=== PATIENT | male | born 1970 | race Caucasian/White ===

== ENCOUNTER 2017-01-15 10:43 | Day surgery (SDC) | payer BC ==
[~2017-01-15 10:43] MED LIST: Lactated Ringers 1,000 ML PRIMARY IV ONE; MIDAZOLAM 5 MG/1 ML ONE; fentaNYL Inj 100 MCG/2 ML VIAL ONE
[2017-01-15] MEDS: LIDOCAINE W/ SODIUM BICARB 0.5 ML SYR ONE (11:15)
--- NOTE | 2017-01-15 12:05 | GEN.OPNOTE ---
Colonoscopy Procedure Note Surgery Date: 01/15/17 Preoperative Diagnosis: Change in bowel habits. Bright red blood per rectum. Postoperative Diagnosis: Same. Mild internal hemorrhoids. Procedure: #1 anoscopy. #2 complete colonoscopy Surgeon: Rico Padilla MD Anesthesia Provider: Ian Bob CRNA Anesthesia Type: MAC Indications: See preoperative diagnosis. Patient also has biliary dyskinesia and is scheduled for laparoscopic cholecystectomy. Findings: Prep : [Excellent] Cecum : [Normal] Ascending : [Normal] Transverse : [Normal] Sigmoid : [Normal ] Rectum : [normal] Digital Rectal Exam : [Mild hemorrhoidal tissue. Prostate of normal size and consistency.] Anoscopy:[Mild internal hemorrhoids. Nothing amenable to local treatment.] A lubricated flexible colonoscope was inserted and passed to the blind end of the cecum. The appendiceal orifice and ileocecal valve were clearly seen. Air was aspirated as the scope was withdrawn. The entire colonoscopy was normal without polyp, tumor, neoplastic mass, infectious or inflammatory process. There was mild internal hemorrhoidal tissue. The scope was withdrawn completing the procedure. Patient tolerated the procedure well without complication. He was taken to outpatient surgery in stable condition. Follow-up will be with my office on an as-needed basis. We will proceed with laparoscopic cholecystectomy with intraoperative cholangiogram as scheduled.
[2017-01-15 12:47] VITALS: TEMP 97.2
[2017-01-15 12:48] VITALS: RESP 16
== END 2017-01-15 12:43 | disposition home or self-care (01) ==
LOC: SDSC 10:43
PROVIDERS: ATTEND Surgery
DX: K82.8 Other specified diseases of gallbladder (principal); R19.4 Change in bowel habit; K62.5 Hemorrhage of anus and rectum
CPT/HCPCS: 45378; J2704; J3010; J2250; J7120

== ENCOUNTER 2017-01-29 06:56 | Day surgery (SDC) | payer BC ==
[~2017-01-29 06:56] MED LIST changes: +ATROPINE SULFATE 0.4 MG/1 ML VIAL IVP PRN; +BUPIVACAINE 0.25% W/ EPI - 10 ML VIAL ONE; +Bacteriostatic NaCl Inj 30ml Vial ONE; +HYDROmorphone 2 MG/1 ML IVP PRN; +IPRATROPIUM/ALBUTEROL SULFATE 3 ML NEB NEB ONE; +Iothalamate Meglumine 30 ML VIAL IV ONE; +LIDOCAINE W/ SODIUM BICARB 0.5 ML SYR ONE; +Lactated Ringers 1,000 ML PRIMARY IV SCH; -MIDAZOLAM 5 MG/1 ML ONE; +NORMAL SALINE 10 ML SYRINGE FLUSH IVP PRN; +ONDANSETRON 4 MG/2 ML VIAL IVP PRN; +Ondansetron ODT Tab 8 MG TAB PO PRN; +Sodium Chloride 0.9% vial 10 ML ONE; +ceFAZolin Inj 2gm (Premix) 50 ML IV ONE; +fentaNYL Inj 100 MCG/2 ML VIAL IVP PRN; -fentaNYL Inj 100 MCG/2 ML VIAL ONE
[2017-01-29] MEDS ORDERED: fentaNYL Inj 250 MCG/5 ML VIAL ONE (07:23)
[2017-01-29] MEDS ORDERED: MIDAZOLAM 5 MG/1 ML ONE (07:23)
[2017-01-29] MEDS ORDERED: ROCURONIUM 10 MG/1 ML - 5 ML VIAL IVP ONE (07:24)
[2017-01-29] MEDS ORDERED: DEXAMETHASONE PF 10 MG/1 ML VIAL ONE (07:26)
[2017-01-29] MEDS ORDERED: LIDOCAINE MPF 2% - 5 ML (20 MG/1 ML) ONE (07:26)
[2017-01-29] MEDS ORDERED: Sodium Chloride 0.9% vial 10 ML ONE (07:26)
[2017-01-29] MEDS ORDERED: IPRATROPIUM/ALBUTEROL SULFATE 3 ML NEB NEB ONE (07:32)
[2017-01-29] MEDS ORDERED: Lactated Ringers 1,000 ML PRIMARY IV ONE (08:24)
[2017-01-29] MEDS ORDERED: ONDANSETRON 4 MG/2 ML VIAL ONE (08:47)
[2017-01-29] MEDS ORDERED: HYDROmorphone 2 MG/1 ML ONE (08:49)
[2017-01-29] MEDS ORDERED: NEOSTIGMINE 1 MG/1 ML - 10 ML ONE (08:55)
[2017-01-29] MEDS ORDERED: GLYCOPYRROLATE 0.2 MG/1 ML VIAL ONE (08:55)
[2017-01-29] MEDS ORDERED: KETOROLAC 30 MG/1 ML VIAL ONE (08:57)
[2017-01-29] MEDS ORDERED: ONDANSETRON 4 MG/2 ML VIAL IVP PRN (09:22)
[2017-01-29] MEDS ORDERED: NORMAL SALINE 10 ML SYRINGE FLUSH IVP PRN (09:22)
[2017-01-29] MEDS ORDERED: HYDROcodone-APAP 5 MG -325 MG TABLET PO PRN (09:22)
[2017-01-29] MEDS ORDERED: MORPHINE SULFATE 2 MG/1 ML IVP PRN (09:22)
--- NOTE | 2017-01-29 09:22 | GEN.OPNOTE ---
Operative Note Surgery Date: 01/29/17 Preoperative Diagnosis: Biliary dyskinesia. Postoperative Diagnosis: Biliary dyskinesia. Procedure: Laparoscopic cholecystectomy with intraoperative cholangiogram. Surgeon: Rico Padilla MD Manager Wound Care: Paul Villanueva MD Anesthesia Provider: Coty Corey CRNA Anesthesia Type: General Estimated Blood Loss (mL): 5 Fluids: 1800 mL of crystalloid. 2 g of IV Ancef at the start of the procedure. 15 mg of IV Toradol at the end of the procedure. Pathology: Specimen to pathology. Indications: Patient with right upper quadrant pain and bloating and decreased appetite. Ultrasound showed no stones. HIDA scan showed ejection fraction of 14% consistent with biliary dyskinesia. Findings: Gallbladder appeared normal. No other intra-abdominal pathology. Intraoperative cholangiogram was normal. The duct was normal in size. There is a normal distal taper with free flow into the duodenum. There was a normal branching pattern. There were no filling defects. Complications: None. Operative Summary: The patient was taken to the operating room and placed on the operating table in the supine position. Following induction of general anesthetic the abdomen was prepped and draped in a sterile fashion. A surgical timeout was done. The infraumbilical region was infiltrated with 1/4% Marcaine with epinephrine. An incision was made. The abdominal wall was elevated. A Veres needle was placed without apparent injury and a pneumoperitoneum was induced. The veres needle was withdrawn. A 10 mm trocar was placed without apparent injury and a laparoscope was inserted. Under direct visualization and following Marcaine injection a 10 mm trocar was placed in the epigastrium and 2x5 mm trochars were placed along the costal margin. The gallbladder was grasped and elevated. Blunt dissection was used to free the cystic duct. A clip was placed along the neck of the gallbladder. A hole was made in the side wall of the cystic duct. A Aptrick cholangiocatheter was inserted. Intraoperative cholangiogram was taken and was normal as previously dictated. The [place] catheter was withdrawn. 2 clips were placed on the distal cystic duct and the duct was divided. The cystic artery was isolated. 2 clips were placed proximally and one distally and the artery was divided. The gallbladder was taken from the hepatic bed using electrocautery. Hemostasis was assured. Appropriate irrigation and suctioning were performed. Final check for hemostasis was made. 5 mL of Marcaine was placed in the gallbladder fossa and 5 over the dome of the liver. The gallbladder was grasped with a large grasper and brought up to the epigastric trocar site. The gallbladder was brought out through the trocar without difficulty. The fascial defect at the umbilicus was closed with a simple 0 Vicryl. A final check for hemostasis was made. The CO2 was burped from the abdominal cavity. The trochars were removed under direct visualization. The epigastric trocar site was closed with a simple 0 Vicryl as well. The skin wounds were closed with inverted interrupted or running subcuticular 4-0 Monocryl followed by Mastisol Steri-Strips and an appropriate dressing. Patient tolerated the procedure well without complication. Patient was taken to the recovery room in stable condition. All counts were correct.
[2017-01-29] MEDS ORDERED: Lactated Ringers 1,000 ML PRIMARY IV SCH (09:30)
[2017-01-29] MEDS ORDERED: Nalbuphine Inj 20 MG/ML Ampule ONE (09:48)
[2017-01-29] MEDS ORDERED: Nalbuphine Inj 20 MG/ML Ampule IVP PRN (09:57)
--- NOTE | 2017-01-29 10:15 | DI ---
OPERATIVE CHOLANGIOGRAM, 01/29/2017 8:00 AM : Clinical History: Biliary dyskinesia. 5 films are submitted. Contrast is present on all films with reflux into the duodenum. There are 2 im ages with reflux into the pancreatic duct. The pancreatic duct appears normal. There is no retained s tone in the common hepatic or common bile ducts. The visualized portions of the intrahepatic biliary tree are normal. Reading: Normal operative cholangiogram.
[2017-01-29 11:37] VITALS: RESP 17
[2017-01-29 11:43] VITALS: TEMP 97.6
== END 2017-01-29 11:25 | disposition home or self-care (01) ==
LOC: SDSC 06:56
PROVIDERS: ATTEND Surgery
DX: K82.8 Other specified diseases of gallbladder (principal); R19.4 Change in bowel habit; K62.5 Hemorrhage of anus and rectum
CPT/HCPCS: 47563; 74300; 94640; A4216; J0690; J1885; J2300; J2704; J3010; J7620; Q9961; J1100; J1170; J2001; J2250; J2405; J2710; J7120

== ENCOUNTER 2017-05-22 19:57 | Inpatient (IN) ==
[~2017-05-22 19:57] MED LIST changes: -ATROPINE SULFATE 0.4 MG/1 ML VIAL IVP PRN; -BUPIVACAINE 0.25% W/ EPI - 10 ML VIAL ONE; -Bacteriostatic NaCl Inj 30ml Vial ONE; -HYDROmorphone 2 MG/1 ML IVP PRN; -IPRATROPIUM/ALBUTEROL SULFATE 3 ML NEB NEB ONE; -Iothalamate Meglumine 30 ML VIAL IV ONE; -LIDOCAINE W/ SODIUM BICARB 0.5 ML SYR ONE; -Lactated Ringers 1,000 ML PRIMARY IV SCH; -NORMAL SALINE 10 ML SYRINGE FLUSH IVP PRN; -ONDANSETRON 4 MG/2 ML VIAL IVP PRN; -Ondansetron ODT Tab 8 MG TAB PO PRN; +Sodium Chloride 0.9% 100 ML IV ONE; -Sodium Chloride 0.9% vial 10 ML ONE; -ceFAZolin Inj 2gm (Premix) 50 ML IV ONE; -fentaNYL Inj 100 MCG/2 ML VIAL IVP PRN
[2017-05-22] MEDS ORDERED: CefOXitin Inj 2 GM in Sodium Chloride 0.9% 100 ML IV ONE (20:21)
[2017-05-22] MEDS ORDERED: Lactated Ringers 1,000 ML PRIMARY IV SCH (20:30)
--- NOTE | 2017-05-22 20:35 | PDOC ---
HPI - History of Present Illness Date and Time of Service: 05/22/2017 at 1630 Chief Complaint: Acute appendicitis History of Present Illness: This is a 46-year-old male is developed acute abdominal pain. He states his the right lower quadrant. He states it's more severe pain and he said. He's never had pain like this before. Patient was seen in emergency department and had 11,000 white count. This that he had a CT scan which showed he had a acute appendicitis with a calcified stool within the appendix. He denies any fever or chills. Is no diarrhea or constipation. There is no nausea vomiting. No hematochezia hematemesis or melena Past Medical History Medical History: History anxiety and depression. History of asthma Surgical History: Laparoscopic cholecystectomy In the Past 12 Months, Have Used or Abuse Any of the Following Substance: None Medication / Allergies Home Medications: Home Medications Medication Instructions Recorded Confirmed Type Budesonide/Formoterol Fumarate 2 puff INH BID inh 01/07/17 05/22/17 History [Symbicort] Buspirone HCl 0.5 tab PO QD tab 01/07/17 05/22/17 History Cetirizine HCl [All Day Allergy] 10 mg PO PRN PRN cap 01/07/17 05/22/17 History Montelukast Sodium 1 tab PO DAILY tab 01/07/17 05/22/17 History Pantoprazole Sodium 1 tab PO DAILY tab 01/07/17 05/22/17 History Sertraline HCl 1 tab PO DAILY tab 01/07/17 05/22/17 History Albuterol Sulfate [Proair 90 mcg INH DAILY 01/15/17 05/22/17 History Respiclick] Citalopram Hydrobromide [Celexa] 10 mg PO DAILY 05/22/17 05/22/17 History Divalproex Sodium 500 mg PO DAILY 05/22/17 05/22/17 History Allergies/Adverse Reactions: Allergies 3 Allergy/AdvReac Type Severity Reaction Status Date / Time No Known Allergies Allergy Verified 05/22/17 20:12 Review of Systems - Constitutional Constitutional: REPORTS: Negative System Review - Integumentary Integumentary: REPORTS: Negative System Review - Respiratory Respiratory: REPORTS: Wheezing - Cardiovascular Cardiovascular: REPORTS: Negative System Review - Gastrointestinal Gastrointestinal / Abdominal: REPORTS: Abdominal Pain, Heartburn - Genitourinary Genitourinary: REPORTS: Negative System Review - Musculoskeletal Musculoskeletal: REPORTS: Negative System Review - Neurological Neurologic: REPORTS: Negative System Review - Psychiatric Psychiatric: REPORTS: Anxiety, Depressed Exam - General General Appearance: No Acute Distress, Cooperative - Head Head Exam: Normal Inspection - Eye Eye Exam: POSITIVE: PERRL, EOMI - Neck Neck Exam: Full ROM - Respiratory Respiratory Exam: POSITIVE: Clear to Auscultation - Bilaterally, Breathing Non Labored - Cardiovascular Cardiovascular Exam: POSITIVE: RRR, No Murmur, No Clicks - GI/Abdominal GI/Abdominal Exam: POSITIVE: Soft, No Hepatomegaly, No Splenomegaly Additional GI/Abdominal Exam Details: Patient has right lower quadrant abdominal pain. There is no rebound or rigidity at this time - Rectal Rectal Exam: POSITIVE: Deferred - Extremities Extremities Exam: POSITIVE: Full ROM, Normal Capillary Refill, No Clubbing Present - Neurological Neurological Exam: POSITIVE: Alert, Oriented x 3 Assessment and Plan - Patient Problems (1) Acute appendicitis with localized peritonitis Current Visit: Yes Status: Acute Code(s): K35.3 - Acute appendicitis with localized peritonitis - Assessment / Plan Additional Assessment/Plan Details: At this point, I think the patient does need an appendectomy. Because of the fecalith, seen within the appendix he is not a candidate for antibiotic therapy. Risks and benefits of surgery were explained to the patient. He understands the risk of surgery and has signed informed consent. He received 2 g of cefoxitin Reduce the risk of a postoperative infection.
[2017-05-22] MEDS ORDERED: fentaNYL Inj 100 MCG/2 ML VIAL IVP PRN (20:38)
[2017-05-22] MEDS ORDERED: HYDROmorphone 2 MG/1 ML IVP PRN (20:38)
[2017-05-22] MEDS ORDERED: NORMAL SALINE 10 ML SYRINGE FLUSH IVP PRN ×3 (20:38→22:15)
[2017-05-22] MEDS ORDERED: ONDANSETRON 4 MG/2 ML VIAL IVP PRN ×3 (20:38→22:15)
[2017-05-22] MEDS ORDERED: BUPivacaine Liposome/PF (Exparel) Inj 20ml vial INFIL ONE (21:14)
[2017-05-22] MEDS ORDERED: NALOXONE 0.4 MG/1 ML VIAL IVP PRN ×2 (21:27→22:15)
[2017-05-22] MEDS ORDERED: HYDROcodone-APAP 7.5 MG-325 MG TABLET PO PRN (21:27)
[2017-05-22] MEDS ORDERED: MORPHINE SULFATE 2 MG/1 ML IVP PRN ×2 (21:27→22:15)
[2017-05-22] MEDS ORDERED: KETOROLAC 15 MG/1 ML VIAL IVP PRN ×2 (21:27→22:15)
--- NOTE | 2017-05-22 21:28 | GEN.OPNOTE ---
Operative Note Surgery Date: 05/22/17 Preoperative Diagnosis: Acute appendicitis with localized peritonitis Postoperative Diagnosis: Same as preop Procedure: Appendectomy Surgeon: Pilo Teague MD Anesthesia Provider: Ian Bob CRNA Anesthesia Type: General Estimated Blood Loss (mL): 2 Fluids: Please see anesthesia notes in EMR Pathology: Appendix was sent Indications: Acute appendicitis Findings: Patient had tip of the appendix that was inflamed was not perforated. Operative Summary: Patient is brought in operative room. Placed supine position. Given general trach anesthesia. Patient is prepped draped sterile fashion Timeout performed per protocols. I then made an incision in the point of maximum tenderness. Hemostased electrocautery dissection the subcutaneous tissue electrocautery. Opened up the entrance cells fascia along its line she is electrocautery. Did a muscle-splitting incision. Posterior sheath was opened transversely. Jb retractor was placed. Identified the appendix brought up the surgical room. Mesoappendix was clamped divided and ligated. Base of the appendix is doubly clamped divided then doubly tied off the stump the appendix cauterized tip to mucocele's. Patient examined off the surgical specimen. Irrigated until clear. Retractors removed. Posterior sheath closed with 0 Vicryl continuous running suture. Anterior fascial sheath closed with 0 Prolene continuous running suture. Skin reapproximated using kei. 20 mg of Exoprel was infiltrated into the subcutaneous tissue around the incision for postoperative pain control. Sterile dressings applied. Counts were correct. Patient transferred recovery room in stable condition. Patient Problems - Patient Problem List (1) Acute appendicitis with localized peritonitis Current Visit: Yes Status: Acute Code(s): K35.3 - Acute appendicitis with localized peritonitis Category: Medical
[2017-05-22] MEDS ORDERED: D5-1/2NS 1,000 ML PRIMARY IV SCH (21:30)
[2017-05-22] MEDS ORDERED: Prochlorperazine Edisylate Inj 10mg/2ml vial ONE (21:43)
[2017-05-22] MEDS ORDERED: IPRATROPIUM/ALBUTEROL SULFATE 3 ML NEB NEB ONE ×2 (21:44→22:07)
[2017-05-22] MEDS ORDERED: HYDROmorphone 2 MG/1 ML ONE (21:49)
--- NOTE | 2017-05-22 21:52 | CRNA.PROGR ---
Anesthesia Time - - Start date: 05/22/17 End date: 05/22/17 - Procedure/Recovery Time Anesthesia : Time In: 20:43 Anesthesia : Time Out: 21:47 Anesthesia : Total Time: 64 - Total Anesthesia Time Total Anesthesia Time (minutes): 64 - Other Weight: 90.718 kg Height: 5 ft 8 in Body Mass Index (BMI): 30.4 Physical Status: P2 (Emergency) Anesthesia Type: General Anesthesia : ET
[2017-05-22] MEDS: HYDROcodone-APAP 7.5 MG-325 MG TABLET PO PRN (22:49)
[2017-05-22] MEDS: D5-1/2NS 1,000 ML PRIMARY IV SCH (22:50)
[2017-05-22] MEDS ORDERED: CITALOPRAM 20 MG TABLET PO SCH (23:15)
[2017-05-22] MEDS ORDERED: DIVALPROEX SODIUM 250 MG TABLET PO SCH (23:15)
[2017-05-23] MEDS: HYDROcodone-APAP 7.5 MG-325 MG TABLET PO PRN ×2 (03:59→09:48)
[2017-05-23 05:19] VITALS: O2SAT 93
[2017-05-23] MEDS ORDERED: PANTOPRAZOLE 40 MG TABLET PO SCH ×2 (07:00→09:00)
[2017-05-23] MEDS ORDERED: ' INH SCH (07:00)
[2017-05-23] MEDS: D5-1/2NS 1,000 ML PRIMARY IV SCH (08:34)
[2017-05-23] MEDS ORDERED: Montelukast Tab 10 MG TAB PO SCH ×2 (09:00)
[2017-05-23] MEDS ORDERED: Sertraline Tab 50 MG TAB PO SCH ×2 (09:00)
[2017-05-23] MEDS ORDERED: busPIRone HCL 5 MG TABLET PO SCH ×2 (09:00)
[2017-05-23] MEDS ORDERED: DIVALPROEX SODIUM 250 MG TABLET PO SCH ×2 (09:00)
[2017-05-23] MEDS ORDERED: FORMOTEROL FUMARATE INH SCH ×2 (09:00)
[2017-05-23] MEDS ORDERED: BUDESONIDE INH SCH ×2 (09:00)
[2017-05-23] MEDS ORDERED: CITALOPRAM HYDROBROMIDE 10 MG PO SCH (09:00)
[2017-05-23] MEDS ORDERED: ALBUTEROL SULFATE 90 MCG INH SCH (09:00)
[2017-05-23] MEDS ORDERED: LORATADINE 10 MG TABLET PO PRN ×2 (09:00)
[2017-05-23 09:47] VITALS: BP 101/67; RESP 16; TEMP 97.6
--- NOTE | 2017-05-23 11:38 | DCSUMMARY ---
Discharge Summary Admit Date: 05/22/17 Discharge Date: 05/23/17 Admitting Diagnosis: acute appendicitis with localized peritonitis Discharge Diagnosis: Acute appendicitis with localized peritonitis Primary Surgery and Date: 05/22/2017 appendectomy Hospital Course: Patient is admitted to the hospital and underwent an appendectomy. First postoperative day he is afebrile vital signs stable. He is in the discharged home Exam - Vitals Vital Signs: Vital Signs Temperature 97.6 F Temperature Source Oral Pulse Rate [Pulse Oximeter] 62 Pulse Rate 70 Respiratory Rate 16 Blood Pressure [Right Arm] 101/67 Blood Pressure 133/79 Pulse Ox 93 Oxygen Flow Rate 1 Oxygen Delivery Method Room Air Height 5 ft 8 in Weight 205 lb 9.6 oz - General General Appearance: No Acute Distress, Cooperative - GI/Abdominal GI/Abdominal Exam: POSITIVE: Non Tender, Non Distended, Soft Patient Problems - Patient Problem List (1) Acute appendicitis with localized peritonitis Current Visit: Yes Status: Acute Code(s): K35.3 - Acute appendicitis with localized peritonitis Category: Medical
--- NOTE | 2017-05-23 12:13 | CRNA.PROGR ---
Anesthesia Note - Progress Notes Anesthesia Progress Note: Pt is sitting up in a chair, he has been up ambulating and to the restroom. He is tolerating a regular diet. States pain is well under control, he denies any residual problems of the general anesthetic. Current VS are stable. Vital Signs (Last 8 hours) Temp Pulse Resp BP Pulse Ox 05/23/17 09:46 97.6 F 62 16 101/67 93 05/23/17 05:18 93 05/23/17 04:27 98.3 F 58 L 18 118/68 96
[2017-05-31] MEDS ORDERED: ROCURONIUM 10 MG/1 ML - 5 ML VIAL IVP ONE (07:28)
== END 2017-05-23 12:18 | disposition home or self-care (01) | DRG 340 ==
LOC: OR 19:57 → MED/SURG 22:08
PROVIDERS: ADMIT Surgery; ATTEND Surgery